=== PATIENT | female | born 1990 | race Caucasian/White ===

== ENCOUNTER 2018-09-21 15:42 | Emergency (ER) | payer MEDICAID ==
[~2018-09-21] VITALS: Ht 167.6 cm; Wt 74.2 kg
[2018-09-21 15:55] VITALS: BP 151/96
--- NOTE | 2018-09-21 15:59 | NUR ---
PT AMBULATED TO BED 09.
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
--- NOTE | 2018-09-21 16:15 | NUR ---
Pupils equal and reactive to light bilaterally. No facial droop noted. Patient is alert and oriented to person, place, time and event. 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 Bilateral foot push equal.
[2018-09-21] MEDS: KETOROLAC 60 MG/2 ML VIAL IM ONE (18:50)
[2018-09-21 18:52] VITALS: BP 122/80
--- NOTE | 2018-09-21 18:53 | NUR ---
Patient discharged with v/s stable. Written and verbal after care instructions given and explained. Patient alert, oriented and verbalized understanding of instructions. Ambulatory with steady gait. All questions addressed prior to discharge. ID band removed. Patient advised to follow up with PMD. Rx of motrin and tramadol given. Patient educated on indication of medication including possible reaction and side effects. Opportunity to ask questions provided and answered.
== END 2018-09-21 18:53 | disposition home or self-care (01) ==
LOC: MED 15:42
DX: S33.5XXA Sprain of ligaments of lumbar spine, initial encounter (principal); S70.12XA Contusion of left thigh, initial encounter; V89.2XXA Person injured in unspecified motor-vehicle accident, traffic, initial encounter; Y93.89 Activity, other specified; Y92.89 Other specified places as the place of occurrence of the external cause; Y99.8 Other external cause status
CPT/HCPCS: 81025; 96372; 99283; J1885